=== PATIENT | female | born 1975 | race Caucasian/White ===

== ENCOUNTER 2023-01-27 13:13 | Emergency (ER) | payer BC, OTHER ==
[~2023-01-27] VITALS: Ht 154.9 cm; Wt 59.0 kg
[2023-01-27] MEDS ORDERED: THIAMINE 100mg/ml INJ (200mg/2ml VIAL) IV ONE (13:45)
[2023-01-27] MEDS ORDERED: SODIUM CHLORIDE 0.9% 1,000 ML IV ONE ×2 (13:45)
[2023-01-27 14:30] LABS: Hematocrit 41.8 % (36.0-46.0); Hemoglobin 14.5 g/dL (12.2-16.2); Mean Corpuscular Hemoglobin 31.2 pg (28.0-32.0); Mean Corpuscular Hgb Conc. 34.7 g/dL (32.0-36.0); Mean Corpuscular Volume 90.1 fL (80.0-100.0); Red Blood Cells 4.64 10^6/uL (4.0-5.20)
[2023-01-27 14:35] LABS: Albumin 3.7 g/dL (3.4-5.0); Calcium 8.4 mg/dL (8.5-10.1); Potassium 3.6 mmol/L (3.5-5.1)
[2023-01-27 14:38] LABS: Acetaminophen < 2.0 ug/mL (10-30); Salicylate < 1.7 mg/dL (2.8-20.0)
[2023-01-27 14:50] LABS: Bilirubin, Total 0.2 mg/dL (0.2-1.0); Total Protein 7.8 g/dL (6.4-8.2)
[2023-01-27 15:20] LABS: Band Neutrophils % (manual) 0; Basophils % (manual) 0 (0.0-2.0); Blast Cells 0; Eosinophils % (manual) 0 (0-7); Metamyelocytes % 0; Myelocytes % 0; Promyelocytes % 0; Reactive Lymphocytes 0
[2023-01-27 17:34] LABS: BUN/Creatinine Ratio 18.4 (10.0-20.0)
[2023-01-27 17:48] LABS: Lymphocytes % (manual) 48 (10.0-50.0); Monocytes % (manual) 8 (0-12)
[2023-01-27 19:59] VITALS: BP 140/81
== END 2023-01-27 20:02 | disposition home or self-care (01) ==
LOC: ER 13:13 → EDBD 13:13 → ER 20:02
DX: F10.129 Alcohol abuse with intoxication, unspecified (principal)
CPT/HCPCS: 36415; 80053; 80320; 80329; 85007; 85027; 96361; 96374; 99283; J3411; J7030